=== PATIENT | female | born 1965 | race African-American/Black ===

== ENCOUNTER 2017-07-18 02:59 | Observation (INO) | payer BC ==
[2017-07-18 03:23] VITALS: BMI 34.9
--- NOTE | 2017-07-18 03:37 | PDOC ---
History of Present Illness - General Chief Complaint: Chest Pain Stated Complaint: CHEST DISCOMFORT Time Seen by Provider: 07/18/17 03:18 - History of Present Illness Initial Comments: 07/18/17 03:37 51 yo F with h/o who presents with retrosternal chest pain starting at 1900 (). Complains of dull, unremitting, retrosternal chest pain with L>R radiation and left shoulder numbness. Pain at rest. No aggravators. Denies neck or jaw radiation. Denies diaphoresis, N/V, fevers/chills, abdominal pain, constipation/diarrhea, lightheadedness, LOC, or weakness. Denies h/o [place], Stent, CABG, or stress testing. Endorses h/o endoscopy in past. GI provider Rocio Weller. Past History - Past Medical History Allergies/Adverse Reactions: Allergies Allergy/AdvReac Type Severity Reaction Status Date / Time No Known Allergies Allergy Verified 07/18/17 03:25 Home Medications: Ambulatory Orders NK [No Known Home Medication] 07/18/17 Asthma: Yes COPD: No - Suicide/Smoking/Psychosocial Hx Smoking History: Current every day smoker Information on smoking cessation initiated: No Hx Alcohol Use: No Drug/Substance Use Hx: No Review of Systems - Review of Systems Comments:: 07/18/17 03:59 GEN CONSTITUTIONAL: No fever or chills. No weakness. HEAD, EYES, EARS, NOSE AND THROAT: No change in vision. No ear pain or discharge. No sore throat.- CARDIOVASCULAR: + chest pain. No shortness of breath RESPIRATORY: No cough, wheezing, or hemoptysis. GASTROINTESTINAL: No nausea, vomiting, diarrhea or constipation. GENITOURINARY: No dysuria, frequency, or change in urination. MUSCULOSKELETAL: No joint or muscle swelling or pain. No neck or back pain. SKIN: No rash NEUROLOGIC: No headache, vertigo, loss of consciousness, or change in strength/ sensation. ENDOCRINE: No increased thirst. No abnormal weight change HEMATOLOGIC/LYMPHATIC: No anemia, easy bleeding, or history of blood clots. ALLERGIC/IMMUNOLOGIC: No hives or skin allergy. \ *Physical Exam - Vital Signs Last Vital Signs Temp Pulse Resp BP Pulse Ox 98.7 F 71 17 108/77 100 07/18/17 03:18 07/18/17 03:18 07/18/17 03:18 07/18/17 03:18 07/18/17 03:18 - Physical Exam Comments: 07/18/17 04:00 GENERAL: Awake, alert, and fully oriented, in no acute distress HEAD: No signs of trauma, normocephalic, atraumatic EYES: PERRLA, EOMI, sclera anicteric, conjunctiva clear ENT:hearing grossly normal, nares patent, oropharynx clear without exudates. Moist mucosa NECK: Normal ROM, no JVD, or masses LUNGS: No distress, speaks full sentences, clear to auscultation bilaterally HEART: Regular rate and rhythm, normal S1 and S2, no murmurs, rubs or gallops, peripheral pulses normal and equal bilaterally. ABDOMEN: Soft, substernal ttp, normoactive bowel sounds. No guarding, no rebound. No masses EXTREMITIES : Normal inspection, Normal range of motion, no edema. No clubbing or cyanosis. SKIN: Warm, Dry, normal turgor, no rashes or lesions noted. Heart Score/ECG Review - History History: Slightly suspicious - Electrocardiogram EKG: Normal - Age Age: >/= 65 - Risk Factors Risk Factors Heart Score: Yes Smoking History, Yes Positive family hx of cardiac disease, Yes Hx Obesity Based on the list above the patient has:: >/=3 risk factors or Hx atherosclerotic disease - Troponin Troponin: </= normal limit - Score Heart Score - Total: 4 - Nu Mine Nu Mine: Normal - ST and T Early Repolarization: No Non Specific ST-T Wave changes: No - ECG Impressions Normal ECG: Yes Non-specific ST Elevation: No Ischemic Changes: No Bradycardia: Yes ED Treatment Course - LABORATORY CBC & Chemistry Diagram: 07/18/17 03:50 07/18/17 03:50 - ADDITIONAL ORDERS Additional order review: Laboratory Results 07/18/17 07/18/17 07/18/17 03:53 03:52 03:50 PT with INR INR Sodium 141 Potassium 3.8 Chloride 108 H Carbon Dioxide 28 Anion Gap 5 L BUN 14 Creatinine 0.6 Creat Clearance w eGFR > 60 Random Glucose 101 Calcium 8.7 Total Bilirubin 0.5 AST 11 L ALT 11 L Alkaline Phosphatase 60 Creatine Kinase 141 Troponin I < 0.02 B-Natriuretic Peptide 25.88 Total Protein 7.4 Albumin 4.0 Urine Color Yellow Urine Appearance Slcloudy Urine pH 5.0 Ur Specific [place] 1.024 Urine Protein Negative Urine Glucose (UA) Negative Urine Ketones Negative Urine Blood Negative Urine Nitrite Negative Urine Bilirubin Negative Urine Urobilinogen Negative Urine HCG, Qual Negative 07/18/17 03:50 PT with INR 12.10 H INR 1.07 Sodium Potassium Chloride Carbon Dioxide Anion Gap BUN Creatinine Creat Clearance w eGFR Random Glucose Calcium Total Bilirubin AST ALT Alkaline Phosphatase Creatine Kinase Troponin I B-Natriuretic Peptide Total Protein Albumin Urine Color Urine Appearance Urine pH Ur Specific [place] Urine Protein Urine Glucose (UA) Urine Ketones Urine Blood Urine Nitrite Urine Bilirubin Urine Urobilinogen Urine HCG, Qual 07/18/17 03:50 RBC 4.51 MCV 83.1 MCHC 33.0 RDW 14.3 MPV 9.6 Neutrophils % 57.5 Lymphocytes % 30.4 Monocytes % 9.7 Eosinophils % 1.8 Basophils % 0.6 - RADIOLOGY Radiology Studies Ordered: Category Date Time Status CXRPORT [CHEST X-RAY PORTABLE*] [RAD] Stat Radiology 07/18/17 03:31 Taken - Medications Given in the ED: ED Medications Discontinued Medications Generic Name Dose Route Start Last Admin Trade Name Freq PRN Reason Stop Dose Admin Al Hydroxide/Mg Hydroxide 30 ml 07/18/17 03:40 07/18/17 04:05 Mylanta Oral Suspension - PO 07/18/17 03:41 30 ml ONCE ONE Administration Bismuth Subsalicylate 262 mg 07/18/17 03:40 07/18/17 04:10 Pepto-Bismol - PO 07/18/17 03:41 262 mg ONCE ONE Administration Medical Decision Making - Medical Decision Making 07/18/17 04:18 51 yo F with h/o who presents with retrosternal chest pain starting at 1900 (). Complains of dull, unremitting, retrosternal chest pain with L>R radiation and left shoulder numbness. Pain at rest. No aggravators. Denies neck or jaw radiation. Denies diaphoresis, N/V, fevers/chills, abdominal pain, constipation/diarrhea, lightheadedness, LOC, or weakness. Denies h/o [place], Stent, CABG. Physical exam benign. Will obtain cardiac workup to R/o ACS/WV. S/s most suggestive of reflux type pain or esophagitis. H/o endoscopy in past. ED Course: CBC,CMP, Cardiac, Trop, BNP UA, EKG, CXR 07/18/17 04:22 ASA, Maloox, Pepcid, Carafate EKG: Sinus bradycardia with absent TWI, DONELL, or STD. 07/18/17 04:45 CBC, CMP: Unremarkable Trop: Neg 07/18/17 04:47 No acute cardiopulmonary pathology. 07/18/17 04:47 UA: Negative 07/18/17 04:47 Heart Score 3 with 13 % RISK of MACE. Admit to OBS Viscous Lidocaine. 07/18/17 04:53 Patient is stable, but continues to endorse chest pain. Microblogged Admitting hospitalist symphony *DC/Admit/Observation/Transfer Diagnosis at time of Disposition: Retrosternal chest pain - Discharge Dispostion Condition at time of disposition: Stable Admit: Yes - Referrals Referrals: Latosha Mendoza [Primary Care Provider] - - Patient Instructions Printed Discharge Instructions: DI for Atypical Chest Pain, DI for Chest Pain Additional Instructions: Please return to the emergency department with any new or worsening symptoms or complaints. Please follow up with your GI physician within the next 1 week. - Post Discharge Activity - Attestations Physician Attestion: 07/18/17 04:49 I attest to the information provided in this note.
[2017-07-18] MEDS ORDERED: BISMUTH SUBSALICYLATE 262 MG TAB.CHEW PO ONE (03:40)
[2017-07-18] MEDS ORDERED: MAG HYDROX/AL HYDROX/SIMETH 30 ML UNIT-DOSE CUP PO ONE (03:40)
--- NOTE | 2017-07-18 03:49 | PDOC ---
Attending Attestation - Resident Resident Name: Ritchie Gaviria - ED Attending Attestation I have performed the following: I have examined & evaluated the patient, The case was reviewed & discussed with the resident, I agree w/resident's findings & plan, Exceptions are as noted - HPI HPI: 07/18/17 03:48 CHEST PAIN - Physicial Exam PE: 07/18/17 03:48 vss/nad - Medical Decision Making 07/18/17 03:48 i AGREE WITH dR. Gaviria'S aSSESSMENT AND pLAN
[2017-07-18 03:57] LABS: BASOPHIL 0.6 % (0-2.0); EOSINOPHIL 1.8 % (0-4.5); MCH 27.4 pg (25.7-33.7); MEAN CELL VOLUME 83.1 fl (80-96); MEAN PLT VOLUME 9.6 fl (7.5-11.1); NEUTROPHILS 57.5 % (42.8-82.8); PLATELET COUNT 203 K/MM3 (134-434); RDW 14.3 % (11.6-15.6); WHITE BLOOD COUNT 6.5 K/mm3 (4.0-10.0)
[2017-07-18] MEDS ORDERED: SUCRALFATE 1 GM TABLET (FP) ONE ×2 (04:02→14:51)
[2017-07-18] MEDS ORDERED: MAG HYDROX/AL HYDROX/SIMETH 30 ML UNIT-DOSE CUP ONE (04:02)
[2017-07-18] MEDS ORDERED: ASPIRIN 81 MG CHEWABLE TABLETS ONE ×2 (04:02→14:50)
[2017-07-18] MEDS: ASPIRIN 81 MG CHEWABLE TABLETS PO SCH ×2 (04:05→14:54)
[2017-07-18] MEDS: SUCRALFATE 1 GM TABLET (FP) PO SCH ×2 (04:05→14:54)
[2017-07-18 04:06] LABS: URINE APPEARANCE SLCLOUDY; URINE BILIRUBIN NEGATIVE (NEGATIVE); URINE BLOOD NEGATIVE (NEGATIVE); URINE COLOR YELLOW; URINE GLUCOSE (UA) NEGATIVE (NEGATIVE); URINE KETONE NEGATIVE (NEGATIVE); URINE NITRITE NEGATIVE (NEGATIVE); URINE PROTEIN NEGATIVE (NEGATIVE); URINE UROBILINOGEN NEGATIVE mg/dL (0.2-1.0)
[2017-07-18 04:21] LABS: INR 1.07 (0.82-1.09); PROTHROMBIN TIME (PATIENT) 12.1 SEC (9.98-11.88)
[2017-07-18 04:29] LABS: ANION GAP 5 (8-16); BILIRUBIN,TOTAL 0.5 mg/dL (0.2-1.0); CALCIUM 8.7 mg/dL (8.5-10.1); CO2 28 mmol/L (21-32); CREATININE 0.6 mg/dL (0.55-1.02); GLUCOSE,RANDOM 101 mg/dL (74-106); SGOT/AST 11 U/L (15-37); SGPT/ALT 11 U/L (12-78); TOT PROT 7.4 g/dl (6.4-8.2)
[2017-07-18 04:30] LABS: ALK PHOS 60 U/L (45-117)
[2017-07-18 04:32] LABS: CPK 141 IU/L (26-192); TROPONIN I < 0.02 ng/ml (0.00-0.05)
[2017-07-18] MEDS ORDERED: LIDOCAINE VISCOUS 2% ORAL/TOP 20 ML UNIT-DOSE CUP MM ONE (05:57)
[2017-07-18] MEDS ORDERED: LIDOCAINE VISCOUS 2% ORAL/TOP 20 ML UNIT-DOSE CUP ONE (06:18)
--- NOTE | 2017-07-18 08:28 | HP ---
CHIEF COMPLAINT: Chest pain PCP: Dr. Latosha Mendoza, [facility], [facility] HISTORY OF PRESENT ILLNESS: 51 year-old female with a PMH significant for mild asthma and gastroparesis of uncertain origin, on no home medications. Patient presented to the ED early this morning with a complaint of mid-sternal chest pain and left upper arm pain. Patient first experienced these symptoms two weeks ago. 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 An EKG was done which was reportedly unremarkable and there was no further intervention. Last night, as patient was leaving work, the symptoms recurred. She did her grocery shopping, went home, took 2 Gas-X pills which helped a little and went to bed. She awoke at midnight with the same symptoms. She went to [facility] ED and an ECG was done by the triage provider. Patient was directed back to the waiting room where the wait time was 4 hours. She left [facility] and came to here. Patient describes pain as dull and the left shoulder pain as numbness. Denies diaphoresis, SOB, AVELAR, lower extremity edema. Patient now advises the mid-sternal pain is worse with movement and she can reproduce the pain by pressing on her sternum. ER course was notable for: (1) Troponin neg x 2 (2) CXR unremarkable (3) Vital signs stable Recent Travel: no PAST MEDICAL HISTORY: Asthma Gastroparesis PAST SURGICAL HISTORY: None reported Social History: works as senior medical technologist Smoking: current everyday smoker Alcohol: no Drugs: no Family History: mother colon cancer; father unknown causes (estranged) ; brother with asthma and HTN Allergies No Known Allergies Allergy (Verified 07/18/17 03:25) HOME MEDICATIONS: Home Medications Medication Instructions Recorded NK [No Known Home Medication] 07/18/17 REVIEW OF SYSTEMS CONSTITUTIONAL: Absent: fever, chills, diaphoresis, generalized weakness, malaise, loss of appetite, weight change HEENT: Absent: rhinorrhea, nasal congestion, throat pain, throat swelling, difficulty swallowing, mouth swelling, ear pain, eye pain, visual changes CARDIOVASCULAR: Present: midsternal chest pain, left upper arm pain Absent: chest pain, syncope, palpitations, irregular heart rate, lightheadedness , peripheral edema RESPIRATORY: Absent: cough, shortness of breath, dyspnea with exertion, orthopnea, wheezing, stridor, hemoptysis GASTROINTESTINAL: Absent: abdominal pain, abdominal distension, nausea, vomiting, diarrhea, constipation, melena, hematochezia GENITOURINARY: Absent: dysuria, frequency, urgency, hesitancy, hematuria, flank pain, genital pain MUSCULOSKELETAL: Absent: myalgia, arthralgia, joint swelling, back pain, neck pain SKIN: Absent: rash, itching, pallor HEMATOLOGIC/IMMUNOLOGIC: Absent: easy bleeding, easy bruising, lymphadenopathy, frequent infections ENDOCRINE: Absent: unexplained weight gain, unexplained weight loss, heat intolerance, cold intolerance NEUROLOGIC: Absent: headache, focal weakness or paresthesias, dizziness, unsteady gait, seizure, mental status changes, bladder or bowel incontinence PSYCHIATRIC: Absent: anxiety, depression, suicidal or homicidal ideation, hallucinations. PHYSICAL EXAMINATION Vital Signs - 24 hr 07/18/17 07/18/17 07/18/17 03:18 06:22 07:30 Temperature 98.7 F Pulse Rate 71 Pulse Rate [ 60 Radial] Respiratory 17 16 Rate Blood Pressure 108/77 Blood Pressure 125/79 [Left Arm] O2 Sat by Pulse 100 100 98 Oximetry (%) GENERAL: Awake, alert, and fully oriented, in no acute distress. LUNGS: Breath sounds equal, clear to auscultation bilaterally. No wheezes, and no crackles. No accessory muscle use. HEART: Regular rate and rhythm, normal S1 and S2 without murmur, rub or gallop. Pain reproducible on exam. ABDOMEN: Soft, nontender, not distended, normoactive bowel sounds, no guarding, no rebound, no masses. UPPER EXTREMITIES: 2+ pulses, warm, well-perfused. No cyanosis. No clubbing. No peripheral edema. LOWER EXTREMITIES: 2+ pulses, warm, well-perfused. No calf tenderness. No peripheral edema. NEUROLOGICAL: Cranial nerves II-XII intact. Normal speech. Normal gait. Laboratory Results - last 24 hr 07/18/17 07/18/17 07/18/17 03:50 03:50 03:50 WBC 6.5 RBC 4.51 Hgb 12.4 Hct 37.5 MCV 83.1 MCH 27.4 MCHC 33.0 RDW 14.3 Plt Count 203 MPV 9.6 Neutrophils % 57.5 Lymphocytes % 30.4 Monocytes % 9.7 Eosinophils % 1.8 Basophils % 0.6 PT with INR 12.10 H INR 1.07 Sodium 141 Potassium 3.8 Chloride 108 H Carbon Dioxide 28 Anion Gap 5 L BUN 14 Creatinine 0.6 Creat Clearance w eGFR > 60 Random Glucose 101 Calcium 8.7 Total Bilirubin 0.5 AST 11 L ALT 11 L Alkaline Phosphatase 60 Creatine Kinase Troponin I B-Natriuretic Peptide Total Protein 7.4 Albumin 4.0 Urine Color Urine Appearance Urine pH Ur Specific [place] Urine Protein Urine Glucose (UA) Urine Ketones Urine Blood Urine Nitrite Urine Bilirubin Urine Urobilinogen Urine HCG, Qual 07/18/17 07/18/17 03:52 03:53 WBC RBC Hgb Hct MCV MCH MCHC RDW Plt Count MPV Neutrophils % Lymphocytes % Monocytes % Eosinophils % Basophils % PT with INR INR Sodium Potassium Chloride Carbon Dioxide Anion Gap BUN Creatinine Creat Clearance w eGFR Random Glucose Calcium Total Bilirubin AST ALT Alkaline Phosphatase Creatine Kinase 141 Troponin I < 0.02 B-Natriuretic Peptide 25.88 Total Protein Albumin Urine Color Yellow Urine Appearance Slcloudy Urine pH 5.0 Ur Specific [place] 1.024 Urine Protein Negative Urine Glucose (UA) Negative Urine Ketones Negative Urine Blood Negative Urine Nitrite Negative Urine Bilirubin Negative Urine Urobilinogen Negative Urine HCG, Qual Negative ASSESSMENT/PLAN: 51 year-old female with a PMH significant for mild asthma and gastroparesis of uncertain origin, on no home medications. Placed on observation for chest pain. Chest pain --r/o ACS: troponins neg x 2, third pending; ECG not suggestive of acute ischemic event; CXR unremarkable; echo and EST pending; cardiology following --r/o PE: Wells score zero, no indication for further workup --r/o GI etiology: may be attributable to gastric reflux/delayed stomach emptying; will start protonix PO --+ musculoskeletal component on exam Gastroparesis --if epigastric pain persists on protonix, should see her GI specialist Dr. Weller as outpatient for possible pro-kinetic therapy F/E/N Fluids: PO intake adequate Electrolytes: replete as indicated Nutrition: NPO for now prior to EST DVT prophylaxis: subq heparin tomorrow if still here Dispo: continues to require inpatient care. Full code. Visit type - Emergency Visit Emergency Visit: Yes ED Registration Date: 07/18/17 Care time: The patient presented to the Emergency Department on the above date and was hospitalized for further evaluation of their emergent condition. - New Patient This patient is new to me today: Yes Date on this admission: 07/18/17 - Critical Care Critical Care patient: No
[2017-07-18 08:37] LABS: TROPONIN I < 0.02 ng/ml (0.00-0.05)
[2017-07-18] MEDS ORDERED: ACETAMINOPHEN 325 MG TABLET (FP) PO PRN (08:51)
[2017-07-18 08:55] LABS: CPK 181 IU/L (26-192)
[2017-07-18 08:59] LABS: URINE LEUK ESTERASE Negative (NEGATIVE)
[2017-07-18] MEDS ORDERED: ACETAMINOPHEN 325 MG TABLET (FP) ONE (09:03)
--- NOTE | 2017-07-18 09:12 | CON.CARD ---
Consult Consult Specialty:: Cardiology Reason for Consultation:: chest pain - History of Present Illness History of Present Illness: 51 yo F with h/o who presents with retrosternal chest pain starting at 1900 (). Complains of dull, unremitting, retrosternal chest pain with L>R radiation and left shoulder numbness. Pain at rest. No aggravators. Denies neck or jaw radiation. Denies diaphoresis, N/V, fevers/chills, abdominal pain, constipation/diarrhea, lightheadedness, LOC, or weakness. Denies h/o ID, Stent, CABG, or stress testing. Endorses h/o endoscopy in past. GI provider Rocio Weller. - History Source History Provided By: Patient, Medical Record - Alcohol/Substance Use Hx Alcohol Use: No - Smoking History Smoking history: Current every day smoker Home Medications - Allergies Allergies/Adverse Reactions: Allergies Allergy/AdvReac Type Severity Reaction Status Date / Time No Known Allergies Allergy Verified 07/18/17 03:25 - Home Medications Home Medications: Ambulatory Orders NK [No Known Home Medication] 07/18/17 Review of Systems - Review of Systems Constitutional: reports: No Symptoms Eyes: reports: No Symptoms HENT: reports: No Symptoms Neck: reports: No Symptoms Cardiovascular: reports: Chest Pain Gastrointestinal: reports: No Symptoms Genitourinary: reports: No Symptoms Breasts: reports: No Symptoms Reported Musculoskeletal: reports: No Symptoms Integumentary: reports: No Symptoms Neurological: reports: No Symptoms Endocrine: reports: No Symptoms Hematology/Lymphatic: reports: No Symptoms Psychiatric: reports: No Symptoms Vital Signs: Vital Signs Temperature 98.7 F 07/18/17 03:18 Pulse Rate 60 07/18/17 06:22 Respiratory Rate 16 07/18/17 06:22 Blood Pressure 125/79 07/18/17 06:22 O2 Sat by Pulse Oximetry (%) 98 07/18/17 07:30 Constitutional: Yes: Well Nourished, No Distress, Calm Eyes: Yes: WNL, Conjunctiva Clear, EOM Intact HENT: Yes: WNL, Atraumatic, Normocephalic Neck: Yes: WNL, Supple, Trachea Midline Respiratory: Yes: WNL, Regular, CTA Bilaterally Gastrointestinal: Yes: WNL, Normal Bowel Sounds Renal/: Yes: WNL Cardiovascular: Yes: WNL, Regular Rate and Rhythm Musculoskeletal: Yes: WNL Extremities: Yes: WNL Integumentary: Yes: WNL Neurological: Yes: WNL, Alert, Oriented ...Motor Strength: WNL Psychiatric: Yes: WNL, Alert, Oriented - Other Data Labs, Other Data: CBC, BMP 07/18/17 03:50 07/18/17 03:50 INR, PTT INR 1.07 (0.82-1.09) 07/18/17 03:50 Troponin, BNP 07/18/17 07/18/17 03:52 07:45 Troponin I < 0.02 < 0.02 B-Natriuretic Peptide 25.88 Troponin, BNP 07/18/17 07/18/17 03:52 07:45 Troponin I < 0.02 < 0.02 B-Natriuretic Peptide 25.88 Imaging - Results Chest X-ray: Image Reviewed (no i/e) EKG: Image Reviewed (nsr) Problem List - Problems (1) Retrosternal chest pain Code(s): R07.2 - PRECORDIAL PAIN Assessment/Plan CP sx r/o mi ?old ID on ekg Plan ASA echo stress test check lipids keep ldl below 70
[2017-07-18] MEDS ORDERED: PANTOPRAZOLE 40 MG TABLET (FP) PO SCH (14:30)
[2017-07-18] MEDS ORDERED: PANTOPRAZOLE 40 MG TABLET (FP) ONE (14:51)
[2017-07-18 17:14] LABS: TROPONIN I < 0.02 ng/ml (0.00-0.05)
[2017-07-18 17:20] LABS: CPK 167 IU/L (26-192)
[2017-07-18 17:30] VITALS: BP 133/75; PULSE 78; TEMP 98.2
--- NOTE | 2017-07-18 18:02 | EKG ---
Test Reason : Blood Pressure : / mmHG Vent. Rate : 058 BPM Atrial Rate : 058 BPM P-R Int : 150 ms QRS Dur : 082 ms QT Int : 410 ms P-R-T Axes : 065 006 006 degrees QTc Int : 402 ms SINUS BRADYCARDIA BASELINE ARTIFACT POOR R WAVE PROGRESSION IN V1 TO V3 NONSPECIFIC ST DEPRESSION NO PREVIOUS ECGS AVAILABLE REPEAT EKG IF CLINICALLY INDICATED Confirmed by PRISCILLA VALENZUELA MD ([id number] on 07/18/2017 6:01:38 PM Referred By: Confirmed By:PRISCILLA VALENZUELA MD
--- NOTE | 2017-07-19 13:12 | TRE ---
Protocol Name : DARCI Max Work Load (METS*10) : 70 Time In Exercise Phase : 00:05:14 Max. Systolic BP : 160 mmHg Max Diastolic BP : 85 mmHg Max Heart Rate : 153 BPM Max Predicted Heart Rate : 170 BPM Attending Physician : DR. VALENZUELA Reason For Termination : Target Heart Rate Achieved Reason for Test : CHEST PAIN Stress Protocol : DARCI Rest HR : 75 BPM PeakEx METs : 7.0 METS Recovery ECG Response (OLD) : Diagnosis : 1. NEGATIVE STRESS TEST. PATIENT ACHIEVED 90% OF MAXIMUM PREDICTED HEART RATE . COMPLETED 2 MINUTES AND 14 SECONDS OF STAGE II DARCI PROTOCOL. 2. LIMITED EXERCISE TOLERANCE AND CAPACITY 3. NORMAL HEMODYNAMIC RESPONSE TO EXERCISE. 4. NO ARRHYTHMIAS. Confirmed by SHEIKH FLORY, PRISCILLA ([id number]), multimedia editor ALEXY TENA ([id number]) on 07/19/2017 1:12:11 PM
[2017-07-19] MEDS ORDERED: HEPARIN NA (PORCINE) 5,000 UNITS/ML 1ML VIAL SQ SCH (14:00)
--- NOTE | 2017-07-24 23:20 | EKG ---
Test Reason : Blood Pressure : / mmHG Vent. Rate : 057 BPM Atrial Rate : 057 BPM P-R Int : 144 ms QRS Dur : 082 ms QT Int : 406 ms P-R-T Axes : 065 -06 010 degrees QTc Int : 395 ms SINUS BRADYCARDIA LOW VOLTAGE QRS BORDERLINE ECG WHEN COMPARED WITH ECG OF 18-JUL-2017 09:13, NO SIGNIFICANT CHANGE WAS FOUND Confirmed by RENETTA WARD MD ([id number]) on 07/24/2017 11:20:18 PM Referred By: LI HUI DR Confirmed By:RENETTA WARD MD
--- NOTE | 2017-07-24 23:20 | EKG ---
Test Reason : Blood Pressure : / mmHG Vent. Rate : 057 BPM Atrial Rate : 057 BPM P-R Int : 148 ms QRS Dur : 084 ms QT Int : 400 ms P-R-T Axes : 060 020 025 degrees QTc Int : 389 ms SINUS BRADYCARDIA LOW VOLTAGE QRS SEPTAL INFARCT , AGE UNDETERMINED ABNORMAL ECG WHEN COMPARED WITH ECG OF 18-JUL-2017 03:15, NO SIGNIFICANT CHANGE WAS FOUND Confirmed by RENETTA WARD MD ([id number]) on 07/24/2017 11:20:22 PM Referred By: Confirmed By:RENETTA WARD MD
== END 2017-07-18 19:02 | disposition home or self-care (01) ==
LOC: JER 02:59 → INTOOBSV 06:16 → UNDOADMOB 06:16 → JERBED 06:16 → J4W 16:59
PROVIDERS: ADMIT Internal Medicine; ATTEND Nurse Practitioner Acute Care
DX: R07.2 Precordial pain (principal)
CPT/HCPCS: 36415; 71010-TC; 80053; 81003; 82550; 82553; 83735; 83880; 84484; 84703; 85025; 85610; 93005; 93010; 93017; 93018; 93306-TC; 99285-25; G0378